=== PATIENT | female | born 1995 | race Caucasian/White ===

== ENCOUNTER 2017-10-10 23:07 | Emergency (ER) | payer MEDICAID, SELFPAY ==
[2017-10-10 23:08] VITALS: BP 126/85; PULSE 75; RESP 16; TEMP 36.6; O2SAT 96; BMI 29.1
--- NOTE | 2017-10-10 23:45 | ED.VISSUMM ---
- ER Visit Summary Date of Service: 10/10/17 Chief Complaint: Nausea, vomiting and diarrhea History of Present Illness: The patient is a 22 F is again past medical or surgical history other than depression. States that she ate a turkey sandwich on Sunday from a [facility] believes she may have gotten food poisoning 2 hours later started having nausea, vomiting and diarrhea. She also had a fever as high as 102 which is since resolved. She has had some abdominal cramping. And intermittent diarrhea and nausea last several days. No one else ate the sandwich that she is aware of she says she does not know of any one else got ill. She denies any dysuria. She denies any melena. Physical Examination: Appearing young female. Vital signs are stable afebrile. She does not look septic or toxic. She does not look dehydrated. He is in no acute distress. HEENT exam unremarkable. Moist wheeze membranes. Neck nontender no lymphadenopathy. Lungs clear to auscultation bilaterally. Heart regular rate and rhythm rate about 70 no murmur. Abdomen is soft and nondistended. Normal bowel sounds no peritoneal signs. Both the right upper and right lower quadrants are unremarkable. There is no significant tenderness. No hernias or masses no signs of obstruction. Moving all 4 extremities. Neurovascular intact. Back exam nontender. Neurologic exam normal. Test Results: Patient does not need any lab tests or imaging. Emergency Department Course and Treatment: Patient did not want IV fluids or IV Zofran. She was concerned for the cost of her care and did not want any testing or IV fluids. I am comfortable with that clinically I think this is viral. Her abdomen is benign. I do not feel she needs tests or imaging. Treatment Plan: P.o. Zofran home pack and discharged home. Disposition: Charge Impression: Acute nausea, vomiting and diarrhea secondary to viral syndrome This note was generated with [employer] dictation software. It may contain incorrect words, spelling, and punctuation that were not noted in review of the chart prior to signing ED Disposition - Plan for ED Patient: Chief Complaint: Nausea/Vomiting/Diarrhea Referrals: Connie Bryan MD [Primary Care Provider] -
--- NOTE | 2017-10-10 23:52 | DCINST.ED_ITS ---
ED Disposition - Plan for ED Patient: Disposition: Home or Assisted Living Chief Complaint: Nausea/Vomiting/Diarrhea Instructions: ED Food Poison Or Gastroenteritis Prescriptions: Ondansetron [Zofran Odt] 4 mg PO Q4H PRN PRN #10 tab.rapdis PRN Reason: Nausea Referrals: Connie Bryan MD [Primary Care Provider] - 3-5 Days if not improving Additional Instructions: Zofran as needed for nausea. Plenty of fluid rest. [place] diet and increase slowly. Not improving in the return to ER follow-up with your doctor. This should progressively get better.
[2017-10-11] MEDS: Ondansetron ODT 4 MG Tablet PO
[2017-10-11 00:01] VITALS: RESP 18
== END 2017-10-11 00:02 | disposition home or self-care (01) ==
PROVIDERS: Emergency Provider Emergency Medicine; Family Provider Pediatrics; PCP Pediatrics
DX: B34.9 Viral infection, unspecified (principal); R11.2 Nausea with vomiting, unspecified; R19.7 Diarrhea, unspecified; F32.9 Major depressive disorder, single episode, unspecified; Z79.899 Other long term (current) drug therapy
CPT/HCPCS: 99282